=== PATIENT | female | born 1980 | race Caucasian/White ===

== ENCOUNTER 2016-06-06 04:56 | Inpatient (IN) | payer MEDICAID ==
[2016-06-06] VITALS (8 sets, daily range): BP systolic 99–144; BP diastolic 57–69; PULSE 63–73; RESP 15–18; Ht 152.4 cm; Wt 90.0 kg
[~2016-06-06] VITALS: Ht 152.4 cm; Wt 90.0 kg
[~2016-06-06 04:56] MED LIST: NITR-58 PO
[2016-06-06] MEDS ORDERED: MISOPROSTOL 200 MCG TAB PR PRN ×2 (06:00→13:00)
[2016-06-06] MEDS ORDERED: CEFAZOLIN 2 GM/50 ML (PMX) 50 ML IV SCH (06:00)
[2016-06-06] MEDS ORDERED: METHYLERGONOVINE 0.2 MG INJ IM PRN ×2 (06:00→13:00)
[2016-06-06] MEDS ORDERED: OXYTOCIN 30 UNITS/LR 500 ML IV PRN ×2 (06:00→13:00)
[2016-06-06] MEDS ORDERED: OXYTOCIN 30 UNITS/LR 500 ML IV SCH (06:00)
[2016-06-06] MEDS ORDERED: CARBOPROST 250 MCG INJ IM PRN ×2 (06:00→13:00)
--- NOTE | 2016-06-06 06:02 | RADRPT ---
PROCEDURE: Limited OB ultrasound CLINICAL INDICATION: Vaginal bleeding TECHNIQUE: Sonographic evaluation to assess the placenta was performed. Transabdominal imaging of the gravid uterus was performed. COMPARISON: No prior exam is available for comparison. FINDINGS: There is a single live intrauterine with cardiac activity, with a heart rate o f 150 bpm. position is cephalic. The placenta is right lateral. There is no evidence of sagar cental abruption or previa. IMPRESSION: There is no evidence of placental abruption or previa. RPTAT: HH .Sudha Cuevas MD, MD Date Time Electronically viewed and signed by .Sudha Cuevas MD, MD on 06/06/2016 06:02 .G/
--- NOTE | 2016-06-06 06:32 | HP ---
Date/Time of Note Date/Time of Note DATE: 06/06/16 TIME: 06:27 OB - History Hx of Present Free Text/Dictation Pt is a 35yo at 36+6 with hx of prior C/S x2 who presents with c/o vaginal bleeding since 0100 followed by contractions. Pt denies having had problems with bleeding during . She reports course has been uncomplicated. Reports normal FM and denies LOF. PROCEDURE: Limited OB ultrasound CLINICAL INDICATION: Vaginal bleeding TECHNIQUE: Sonographic evaluation to assess the placenta was performed. Transabdominal imaging of the gravid uterus was performed. COMPARISON: No prior exam is available for comparison. FINDINGS: There is a single live intrauterine with cardiac activity, with a heart rate of 150 bpm. position is cephalic. The placenta is right lateral. There is no evidence of placental abruption or previa. IMPRESSION: There is no evidence of placental abruption or previa. Estimated Due Date: Jun 28, 2016 : 5 Para: 2 Spontaneous : 2 Care: Good Care Obstetrical Complications: Other (C/S x2) Medical Complications: None Past Family/Social History * Past Medical, Surgical, Family and Obstetric Histories reviewed from chart. OB Admission Exam Vital Signs Vital Signs Vital Signs Date Time Temp Pulse Resp B/P Pulse Ox O2 Delivery O2 Flow Rate FiO2 06/06/16 06:21 98.3 70 15 126/69 Room Air 06/06/16 05:16 98 Physical Exam HEENT: WNL Heart: Rhythm Normal Lungs: Clear Abdomen: WNL Extremities: Normal Cervical Dilatation: 1cm (on SSE. <10ml blood in vault. No active bleeding although there appeared to be a clot over the cervical os) Effacement: 0% (on SSE, SVE deferred) Station: -3 (on SSE, SVE deferred) Heart Rate: 130's Accelerations: Accelerations Present Decelerations: No Decelerations Varibility: Moderate Contractions on Admission: < 5 Minutes Apart Intensity: Mild OB Assessment/Plan Other Assessment: 1) Vaginal Bleeding 2) Hx of C/S x2 Other plan: -Given pt prior C/S hx and absence of available records, U/S ordered for placental location as differential includes placenta previa vs abruption vs labor. No previa or abruption noted on U/S results. Most likely bleeding is 2/2 PTL. -FWB reassuring, Category 1 FHT -Admission and pre-op labs drawn, awaiting results -Will prepare pt for OR, last meal at 1900 last night KRISHNA FRYE MD Jun 06, 2016 06:32
[2016-06-06 06:46] LABS: BASOPHILS % 0.2 % (0.0-2.0); EOSINOPHILS # 0.1 10^3/ul (0.0-0.5); HEMATOCRIT 38.7 % (37.0-47.0); HEMOGLOBIN 13.1 g/dl (12.0-16.0); LYMPHOCYTES # 1.8 10^3/ul (0.8-2.9); MEAN CORPUSCULAR HEMOGLOBIN 31.3 pg (29.0-33.0); MEAN CORPUSCULAR HGB CONC 33.9 g/dl (32.0-37.0); MEAN CORPUSCULAR VOLUME 92.4 fl (82.0-101.0); MEAN PLATELET VOLUME 8.4 fl (7.4-10.4); MONOCYTE # 0.5 10^3/ul (0.3-0.9); MONOCYTES % 7.2 % (0.0-11.0); NEUTROPHIL # 4.1 10^3/ul (1.6-7.5); NEUTROPHILS % 63.6 % (39.0-77.0); PLATELET COUNT 215 10^3/UL (140-440); RED BLOOD COUNT 4.19 10^6/ul (4.20-5.40); UNCORRECTED WBC 6.4 10^3/ul (4.8-10.8); WHITE BLOOD COUNT 6.4 10^3/ul (4.8-10.8)
[2016-06-06] MEDS: LACTATED RINGER'S 1,000 ML IV SCH ×2 (06:52→07:53)
[2016-06-06 07:00] LABS: CONDITION 1
[2016-06-06] MEDS ORDERED: ONDANSETRON 4 MG INJ IV ONE (07:30)
[2016-06-06] MEDS ORDERED: CITRIC ACID/NA CITRATE 30 ML CUP PO ONE (07:30)
[2016-06-06 07:42] LABS: PROTIME 13.2 Sec (12.2-14.2)
[2016-06-06 07:43] LABS: PARTIAL THROMBOPLASTIN TIME 26.9 Sec (25.0-35.0)
[2016-06-06] MEDS ORDERED: morphine SULFATE/PF (10 MG/10 ML) INJ ONE (07:58)
[2016-06-06] MEDS ORDERED: PHENYLephrine (100 MCG/ML) 5ML SYG ONE (08:08)
[2016-06-06] MEDS ORDERED: OXYTOCIN 10 UNIT INJ ONE (08:08)
[2016-06-06] MEDS ORDERED: HYDROmorphONE (0.2 MG/ML) 10ML SYG IV PRN (08:30)
[2016-06-06] MEDS ORDERED: morphine (1 MG/ML) 10ML SYRINGE IV PRN ×2 (08:30)
[2016-06-06] MEDS ORDERED: NALOXONE (0.4 MG/ML) INJ IV PRN (08:30)
[2016-06-06] MEDS ORDERED: EPHEDrine SULFATE 50 MG/5 ML SYG IV PRN (08:30)
[2016-06-06] MEDS ORDERED: HYDROmorphONE 1 MG/ML SYG IV PRN ×2 (08:30)
[2016-06-06] MEDS ORDERED: DIPHENHYDRAMINE 50 MG INJ IV PRN ×2 (08:30)
[2016-06-06] MEDS ORDERED: KETOROLAC 30 MG INJ IV PRN (08:30)
[2016-06-06] MEDS ORDERED: NALBUPHINE HCL (10 MG/1 ML) INJ IV PRN (08:30)
[2016-06-06] MEDS ORDERED: HYDROCODONE/APAP (5/325) TAB PO PRN (08:30)
[2016-06-06] MEDS ORDERED: MEPERIDINE 25 MG INJ IV PRN (08:30)
[2016-06-06] MEDS ORDERED: ONDANSETRON 4 MG INJ IV PRN ×2 (08:30)
[2016-06-06] MEDS ORDERED: morphine 2 MG INJ IV PRN (08:30)
[2016-06-06] MEDS ORDERED: METOCLOPRAMIDE 10 MG INJ IV PRN (08:30)
[2016-06-06] MEDS ORDERED: morphine 4 MG/ML VIAL IV PRN (08:30)
[2016-06-06] MEDS ORDERED: DEXAMETHASONE 4 MG/ML 1 ML INJ ONE (08:40)
[2016-06-06] MEDS ORDERED: ONDANSETRON 4 MG INJ ONE (08:40)
[2016-06-06] MEDS ORDERED: KETOROLAC 30 MG INJ ONE (08:40)
[2016-06-06] MEDS: HYDROmorphONE (0.2 MG/ML) 10ML SYG IV PRN ×2 (10:46→11:16)
--- NOTE | 2016-06-06 12:19 | DELSUM ---
Delivery Summary A-C Datetime Report Generated by CPN: 06/06/2016 12:19 DELIVERY PERSONNEL Clinical Psychiatrist: Shalonda Preciadovia MATERNAL INFORMATION Delivery Anesthesia: Spinal Medications in Delivery: see anesthesia record Estimated Blood Loss (ml): 600 Placenta Cultured: No Maternal Complications: None Other Maternal Complications: bleeding LABOR SUMMARY EDC: 06/28/2016 00:00 No. Babies in Womb: 1 Attempted: No Labor Anesthesia: None LABOR INFORMATION Reason for Induction: Not Applicable Onset of Labor: 06/06/2016 04:30 Oxytocin: N/A Group B Beta Strep: Done, Result Unknown Antibiotics # of Doses: amcef 2 grams X1 Antibiotics Time of Last Dose: 08 Steroids Given: None Reason Steroids Not Administered: Not Applicable MEMBRANES Membranes Rupture Method: Artificial Rupture of Membranes: 06/06/2016 08:30 Length of Rupture (hr): 0.02 Amniotic Fluid Color: Clear Amniotic Fluid Amount: Moderate Amniotic Fluid Odor: Normal STAGES OF LABOR Stage 3 hr: 0 Stage 3 min: 3 Total Time in Labor hr: 4 Total Time in Labor min: 4 CSECTION DELIVERY Primary Indication: Repeat Elective Other Primary Indication: bleeding Secondary Indication: Repeat Elective CSection Urgency: Elective CSection Incidence: Repeat Labor: Labor Elective: Elective CSection Incision: Lower Uterine Transverse Sterilization Procedure: Omi BABY A INFORMATION Infant Delivery Date/Time: 06/06/2016 08:31 Method of Delivery: Born in Route : No : N/A Forceps: N/A Vacuum Extraction: N/A Shoulder Dystocia : N/A SHOULDER DYSTOCIA BABY A Infant Delivery Date/Time: 06/06/2016 08:31 PRESENTATION/POSITION BABY A Presentation: Cephalic Cephalic Presentation: Vertex Vertex Position: Left Occipital Anterior Breech Presentation: N/A PLACENTA INFORMATION BABY A Placenta Delivery Time : 06/06/2016 08:34 Placenta Method of Delivery: Manual Removal Placenta Status: Delivered SCORES BABY A Heart Rate 1 min: >100 bpm Resp Effort 1 min: Good Cry Reflex Irritability 1 min: Cough/Sneeze/Pulls Away Muscle Tone 1 min: Active Motion Color 1 min: Body [place], Extremit Blue Resuscitation Effort 1 min: Tactile Stimulation SCORE 1 MIN: 9 Heart Rate 5 min: >100 bpm Resp Effort 5 min: Good Cry Reflex Irritability 5 min: Cough/Sneeze/Pulls Away Muscle Tone 5 min: Active Motion Color 5 min: Body [place], Extremit Blue Resuscitation Effort 5 min: Tactile Stimulation SCORE 5 MIN: 9 INFORMATION BABY A Gestational Age at Delivery: 36.6 Gestational Status: Late - 34- 36.6 Weeks Infant Outcome : Liveborn Condition : Stable Sex: Male IDENTIFICATION/MEDS BABY A ID Band Number: [id number] ID Band Location: Right Leg; Left Arm Sensor Applied: Yes Sensor Number: [id number] Sensor Location : Cord Clamp Vitamin K Given : Aquamephyton 1 mg IM; Left Thigh Erythromycin Given: Given Both Eyes WEIGHT/LENGTH BABY A Infant Birthweight (gm): 3635 Weight (lb): 8 Infant Weight (oz): 0 Infant Length (in): 21.00 Infant Length (cm): 53.34 CORD INFORMATION BABY A No. Cord Vessels: 3 Nuchal Cord : Around Neck x2, Tight Cord Blood Taken: Yes Infant Suction: Mouth; Nose ASSESSMENT BABY A Complications: None Physical Findings at Delivery: Within Normal Limits Respirations: Appears Normal Motion Picture Critic/ALS Called : No Care By: stacy Transferred To: Remains with Mother
--- NOTE | 2016-06-06 12:19 | DELSUM ---
Delivery Summary A-C Datetime Report Generated by CPN: 06/06/2016 12:19 DELIVERY PERSONNEL Plant Facilities Technician: Shalonda Preciadovia MATERNAL INFORMATION Delivery Anesthesia: Spinal Medications in Delivery: see anesthesia record Estimated Blood Loss (ml): 600 Placenta Cultured: No Maternal Complications: None Other Maternal Complications: bleeding LABOR SUMMARY EDC: 06/28/2016 00:00 No. Babies in Womb: 1 Attempted: No Labor Anesthesia: None LABOR INFORMATION Reason for Induction: Not Applicable Onset of Labor: 06/06/2016 04:30 Oxytocin: N/A Group B Beta Strep: Done, Result Unknown Antibiotics # of Doses: amcef 2 grams X1 Antibiotics Time of Last Dose: 08 Steroids Given: None Reason Steroids Not Administered: Not Applicable MEMBRANES Membranes Rupture Method: Artificial Rupture of Membranes: 06/06/2016 08:30 Length of Rupture (hr): 0.02 Amniotic Fluid Color: Clear Amniotic Fluid Amount: Moderate Amniotic Fluid Odor: Normal STAGES OF LABOR Stage 3 hr: 0 Stage 3 min: 3 Total Time in Labor hr: 4 Total Time in Labor min: 4 CSECTION DELIVERY Primary Indication: Repeat Elective Other Primary Indication: bleeding Secondary Indication: Repeat Elective CSection Urgency: Elective CSection Incidence: Repeat Labor: Labor Elective: Elective CSection Incision: Lower Uterine Transverse Sterilization Procedure: Omi BABY A INFORMATION Infant Delivery Date/Time: 06/06/2016 08:31 Method of Delivery: Born in Route : No : N/A Forceps: N/A Vacuum Extraction: N/A Shoulder Dystocia : N/A SHOULDER DYSTOCIA BABY A Infant Delivery Date/Time: 06/06/2016 08:31 PRESENTATION/POSITION BABY A Presentation: Cephalic Cephalic Presentation: Vertex Vertex Position: Left Occipital Anterior Breech Presentation: N/A PLACENTA INFORMATION BABY A Placenta Delivery Time : 06/06/2016 08:34 Placenta Method of Delivery: Manual Removal Placenta Status: Delivered SCORES BABY A Heart Rate 1 min: >100 bpm Resp Effort 1 min: Good Cry Reflex Irritability 1 min: Cough/Sneeze/Pulls Away Muscle Tone 1 min: Active Motion Color 1 min: Body Clara, Extremit Blue Resuscitation Effort 1 min: Tactile Stimulation SCORE 1 MIN: 9 Heart Rate 5 min: >100 bpm Resp Effort 5 min: Good Cry Reflex Irritability 5 min: Cough/Sneeze/Pulls Away Muscle Tone 5 min: Active Motion Color 5 min: Body Clara, Extremit Blue Resuscitation Effort 5 min: Tactile Stimulation SCORE 5 MIN: 9 INFORMATION BABY A Gestational Age at Delivery: 36.6 Gestational Status: Late - 34- 36.6 Weeks Infant Outcome : Liveborn Condition : Stable Sex: Male IDENTIFICATION/MEDS BABY A ID Band Number: [id number] ID Band Location: Right Leg; Left Arm Sensor Applied: Yes Sensor Number: [id number] Sensor Location : Cord Clamp Vitamin K Given : Aquamephyton 1 mg IM; Left Thigh Erythromycin Given: Given Both Eyes WEIGHT/LENGTH BABY A Infant Birthweight (gm): 3635 Weight (lb): 8 Infant Weight (oz): 0 Infant Length (in): 21.00 Infant Length (cm): 53.34 CORD INFORMATION BABY A No. Cord Vessels: 3 Nuchal Cord : Around Neck x2, Tight Cord Blood Taken: Yes Infant Suction: Mouth; Nose ASSESSMENT BABY A Complications: None Physical Findings at Delivery: Within Normal Limits Respirations: Appears Normal Oil Well Perforator Operator/ALS Called : No Care By: stacy Transferred To: Remains with Mother
--- NOTE | 2016-06-06 12:19 | OPRPT ---
Intraop Record Datetime Report Generated by CPN: 06/06/2016 12:19 Datetime: 06/06/2016 11:30 Sequential Compression Device: Yes Datetime: 06/06/2016 11:15 Sequential Compression Device: Yes Datetime: 06/06/2016 11:00 Sequential Compression Device: Yes Datetime: 06/06/2016 10:45 Sequential Compression Device: Yes Datetime: 06/06/2016 10:30 Sequential Compression Device: Yes Datetime: 06/06/2016 10:15 Sequential Compression Device: Yes Datetime: 06/06/2016 10:00 Sequential Compression Device: Yes Datetime: 06/06/2016 09:45 Sequential Compression Device: Yes Datetime: 06/06/2016 09:30 Sequential Compression Device: Yes Datetime: 06/06/2016 09:15 Depart OR: 06/06/2016 09:11 Anesthesia End: 06/06/2016 09:25 Sequential Compression Device: Yes Datetime: 06/06/2016 07:43 OR Number: 3 TIMES/PROCEDURE Arrive OR: 06/06/2016 07:56 Depart OR: 06/06/2016 09:11 Anesthesia Start: 06/06/2016 07:30 Anesthesia End: 06/06/2016 08:25 Surgery Start: 06/06/2016 08:25 Surgery End: 06/06/2016 09:11 Preoperative Dx: repeat section with BTL Surgical Procedure: Section with BTL C/S Decision Time: 06/06/2016 06:00 C/S Decision to Incision (min): 145 Uterine Incision: 06/06/2016 08:30 PERSONNEL Surgeon: Sita Hill PERSONNEL Surgeon: Sita Hill Scrub: Cecelia Mccarthy Anesthesia Care Provider: Shaan Reddy Infant Care: See Delivery Summary for Infant Care Providers Others in OR: FOB Anesthesia Type: Spinal ASA Level: II; Emergency RISK FOR INJURY Mode of Arrival: cynthia Procedure Time Out: Correct Patient Identity; Correct Side and Site are Marked (if applicable); Acc urate Procedure Consent Form; Agreement on Procedure to be Done; Correct Patient Position; Relevant Images and Results are Properly Labeled and Displayed; Addressed Need to Administer Antibiotics or F luids for Irrigation; Safety Precautions Based on Patient History or Medication Use; Allergies Revie wed Preoperative Information: Preoperative Checklist Reviewed; Allergies Reviewed; NPO Status Verified RISK FOR ANXIETY/KNOW DEFICIT Emotional Status: Calm/Relaxed Interventions: Provided Education Based on Age and Identified Needs; Communicated Patient Concerns to Appropriate Members of the Health Care Team; Explained Sequence of Events and Perioperative Routi ne; Evaluated Response to Instructions RISK FOR PAIN Pain Teaching: Instructed on Pain Scale Pain Scale: 8.0 Pain Location: Abdomen, PREOPERATIVE OUTCOMES Preoperative Outcomes: Verbalizes/Indicates Decreased Anxiety, Ability to Latty, Understanding of Pr ocedure and Sequence of Events. Questions Answered; Demonstrates Adequate Pain Management; Verbaliz es Comfort Related to Transfer/Transport RISK FOR INFECTION Skin Pre-Operative Site: Intact Clip: Clip Clip Location: MONS PUBIS Prep: Yes Prep By: ANAID Prep Solution: Chlorohexadine Catheter: Macias Catheter Size: 16 Catheter Inserted By: ANAID CRANEcementer hand Wound Class: [id number] Dressing Type: Secured Gauze Other Dressing Types: paper tape Risk for Impaired Skin Integrity Position in OR: Supine Bony Prominences Protection: Arms Tucked/Padded Positioning Devices: N/A Other Position: skin intact no erythema noted Risk for Hypothermia Warming Interventions: Warm [place](s) Warming Unit Temp Settin.0 Warming Device Number: [id number] Risk for Injury Safety Straps Applied: Legs Sequential Compression Device: Yes Sequential Compression Other: [id number] Electrosurgical Unit: Yes Electrosurgical Unit Number: [id number] Bipolar Number: [id number] 11/2017 Ground Pad Location: Right Anterior Thigh Coag Number: 55 Cut Number: 55 Estimated Blood Loss- OR (ml): 600 1st Count Sponge Count: Correct Needle Count: Correct Blade Count: Correct Instrument Count: Correct 2nd Count Sponge Count: Correct Needle Count: Correct Blade Count: Correct Instrument Count: Correct 3rd Count Sponge Count: Correct Needle Count: Correct Blade Count: Correct Instrument Count: Correct Final Count Sponge Count 4: Correct Needle Count 4: Correct Blade Count 4: Correct Instrument Count 4: Correct Surgeon Acknowledged Count: Yes Final Count Resolution: N/A Intraoperative Data Equipment: Non-Invasive Blood Pressure; Pulse Oximeter; EKG; Temp Monitor Blood Products Given: N/A Meds Not Administered by Anest: ORESTES SMITH Implants/Prosthesis Implants/Prosthesis: N/A Grafts: N/A Irrigation Irrigants: NACL; LR Irrigation Amount: 1000 EACH Specimens Specimens: N/A Specimen Type: Fallopian Tubes Disposition: PATHOLOGY Specimen Type: Fallopian Tubes Disposition: PATHOLOGY Cultures Cultures: Yes X-Ray X-Ray Taken: No Postoperative Skin: Warm; Dry Pain Scale: 0 Condition: Awake; Alert Temperature: 98.0 Operative Outcomes: Patient's Surgery Performed Using Aseptic Technique and in a Manner to Prevent Cross-Contamination; Skin Remains Smooth, Intact, Non-reddened, Non-irritated, Free of Bruising; Cor e Body Temperature Remains in Expected Range Other Operative Outcomes: skin intact no erythema noted Transfer To: PACU Report Given to: This RN Datetime: 06/06/2016 05:33 Food Allergies/Reactions: none Latex Allergies/Reactions: No Latex Allergies Datetime: 05/30/2016 10:28 Drug Allergies/Reactions: No Known Allergy (12/13/2014)
[2016-06-06] MEDS ORDERED: CEFAZOLIN 1 GM/50 ML (PMX) 50 ML IVPB SCH (13:00)
[2016-06-06] MEDS ORDERED: OXYCODONE/ACETAMINOPHEN (5/325) TAB PO PRN (13:00)
[2016-06-06] MEDS ORDERED: ACETAMINOPHEN/CODEINE #3 TAB PO PRN ×2 (13:00)
[2016-06-06] MEDS: OXYTOCIN 30 UNITS/LR 500 ML IV SCH ×3 (13:15→20:44)
[2016-06-06] MEDS: SENNA/DOCUSATE NA (8.6MG/50MG) TAB PO SCH (20:45)
--- NOTE | 2016-06-06 23:02 | OPR ---
DATE OF OPERATION: 06/06/2016 PREOPERATIVE DIAGNOSES: 1. Intrauterine at 36 weeks and 6 days. 2. History of 2 previous sections. 3. In active labor. 4. Request for voluntary sterilization, bilateral tubal ligation at the time of section. POSTOPERATIVE DIAGNOSES: 1. Intrauterine at 36 weeks and 6 days. 2. History of 2 previous sections. 3. In active labor. 4. Request for voluntary sterilization, bilateral tubal ligation at the time of section. OPERATION PERFORMED: Repeat transverse low cervical section, bilateral tubal ligation. SURGEON: Shweta Hill MD TELEVISION MAINTENANCE MAN: Darian Clinton MD ANESTHESIA: Spinal. ANESTHESIOLOGIST: Shaan Reddy MD FINDINGS: Live baby boy, 9 and 9. Baby weighed 3635 grams, 8 pounds. DETAILS OF THE PROCEDURE: Under satisfactory spinal anesthesia, the patient was prepped and draped and placed in supine position, tilted to the left. Pfannenstiel incision was made, carried through to the subcutaneous tissue. Bleeders brought under control with electrocautery. Fascia incised to the length of the incision. Rectus muscle divided in midline. Peritoneum exposed, entered through a transverse incision. Exploration of abdomen gravid uterus at term, normal appearing tubes and ova conner, and extremely thinned out lower segment of the uterus. Bladder flap was developed. Transvers e incision was made in the lower segment of the uterus. Amniotic sac ruptured. Clear amniotic flui d noted. Live baby boy was delivered from unengaged vertex with a nuchal cord x2, tight, around the baby's neck. Nasal oropharyngeal suction was performed. Baby handed to the team for imme diate attention. The patient received 20 units of Pitocin. Placenta delivered manually intact. Ut erine cavity cleaned with wet sponge and drainage established. Uterus closed in 2 layers using Will cryl #1 in continuous fashion. Bilateral tubal ligation performed by identifying the fimbria and am pullary section of the right fallopian tube. Suture material used #0 plain catgut was reinforced wi th the same suture material. That portion of the tube was excised and submitted for the pathology. The same procedure performed for the opposite side. Peritoneal cavity was irrigated with warm sali ne. Sponge, needle, and instrument reported to be correct. Abdominal peritoneum closed with 2-0 ch romic catgut continuously. Rectus muscle approximated with 2 interrupted 2-0 chromic catgut. Fasci a closed with #1 PDS in a continuous fashion. Subcutaneous tissue approximated with 2-0 chromic cat gut. Skin closed with chito. Estimated blood loss 600 mL. Urine bag contained 200 mL of clear u rine. The patient tolerated procedure well, transferred to recovery room in a good condition. Dictated By: SHWETA MARTINES/INEZ Conf#: [id number] DID#: [id number]
[2016-06-07] VITALS: BP 98/53; PULSE 66; RESP 18
[2016-06-07] MEDS: OXYTOCIN 30 UNITS/LR 500 ML IV SCH ×2 (00:59→04:59)
[2016-06-07] MEDS: LACTATED RINGER'S 1,000 ML IV SCH ×3 (01:22→05:48)
[2016-06-07 04:20] VITALS: BP 106/53; PULSE 64; RESP 18
--- NOTE | 2016-06-07 06:56 | CONS ---
Date/Time of Note Date/Time of Note DATE: 06/07/16 TIME: 06:53 Consultation Date/Type/Reason Admit Date/Time Jun 06, 2016 at 06:00 Initial Consult Date 06/06/16 Type of Consultation: Anesthesia Reason for Consultation Repeat in labor and Placenta Previa 24 HR Interval Summary Free Text/Dictation 35 yr old female went under repeat under spinal anesthesia. Intrathecal Duramorph was given for post-op pain control. Patient is doing well pain is well controlled. No nausea or vomiting. No sensory or motor deficit. Vital signs are stable patient is afebrile. No apnea reported. Patient will be followed by her primary team. Exam/Review of Systems Vital Signs Vitals Vital Signs Date Time Temp Pulse Resp B/P Pulse Ox O2 Delivery O2 Flow Rate FiO2 06/07/16 04:20 98.3 64 18 106/53 Room Air 06/07/16 03:15 96 21 Intake and Output 06/06/16 06/06/16 06/07/16 15:00 23:00 07:00 Intake Total 2720 ml 1000 ml 1045 ml Output Total 800 ml 800 ml 800 ml Balance 1920 ml 200 ml 245 ml Results Result Diagram: 06/06/16 0605 Results 24 hrs Laboratory Tests Test 06/06/16 07:19 Activated Partial Thromboplast Time 26.9 INR International Normalized Ratio 1.00 Prothrombin Time 13.2 Prothrombin Time Ratio 1.0 Medications Medications Current Medications Lactated Ringer's 1,000 ml @ 125 mls/hr Q8H IV Last administered on 06/06/16 07:53; Admin Dose 125 MLS/HR; Start 06/06/16 at 05:48 Oxytocin/Lactated Ringer's 500 ml @ 125 mls/hr ONCE IV Last administered on 09:43; Admin Dose 125 MLS/HR; Start 06/06/16 at 06:00 Hydromorphone HCl (Dilaudid) 0.2 mg Q2H PRN IV PAIN LEVEL 1-5; Start 06/06/16 at 08:30 Hydromorphone HCl (Dilaudid) 0.4 mg Q2H PRN IV PAIN LEVEL 6-10; Start 06/06/16 at 08:30 Morphine Sulfate (morphine) 2 mg Q2H PRN IV PAIN LEVEL 1-5; Start 06/06/16 at 08:30 Morphine Sulfate (morphine) 4 mg Q2H PRN IV PAIN LEVEL 6-10; Start 06/06/16 at 08:30 Ketorolac Tromethamine (Toradol) 30 mg Q6H PRN IV PAIN LEVEL 6-10; Start at 08:30; Stop 06/09/16 at 08:29 Acetaminophen/ Hydrocodone Bitart (Blackstone (5/325)) 1 tab Q4H PRN PO PAIN LEVEL 4 -6; Start 06/06/16 at 08:30 Nalbuphine HCl (Nubain) 10 mg Q4H PRN IV PRURITUS; Start 06/06/16 at 08:30 Ondansetron HCl (Zofran Inj) 4 mg Q6H PRN IV NAUSEA AND/OR VOMITING; Start at 08:30 Naloxone HCl (Narcan) 0.2 mg Q2M PRN IV FOR RESP RATE 8 OR LESS; Start at 08:30 Acetaminophen/ Codeine Phosphate (Tylenol No.3) 1 tab Q4H PRN PO PAIN LEVEL 4-6 ; Start 06/06/16 at 13:00 Acetaminophen/ Codeine Phosphate (Tylenol No.3) 2 tab Q4H PRN PO PAIN LEVEL 7- 10; Start 06/06/16 at 13:00 Oxycodone/ Acetaminophen (Percocet (5/ 325)) 1 tab Q4H PRN PO PAIN LEVEL 4-6; Start 06/06/16 at 13:00 Oxycodone/ Acetaminophen (Percocet (5/ 325)) 2 tab Q4H PRN PO PAIN LEVEL 7-10; Start 06/06/16 at 13:00 Ibuprofen (Motrin) 600 mg Q6 PO ; Start 06/07/16 at 18:00 Simethicone (Mylicon) 160 mg Q8H PRN PO DISTENSION/GAS/BLOATING; Start at 13:00 Senna/Docusate Sodium (Senokot-S) 1 tab BID PO Last administered on 06/06/16t 20:45; Admin Dose 1 TAB; Start 06/06/16 at 21:00 Diphtheria/ Tetanus/Acell Pertussis 0.5 ml 0.5 ml ONCE ONCE IM* ; Start at 09:00; Stop 06/09/16 at 09:01 Oxytocin/Lactated Ringer's 500 ml @ 0 mls/hr ONCE PRN IV For Hemorrhage Management; Start 06/06/16 at 13:00 Methylergonovine Maleate (Methergine) 0.2 mg ONCE PRN IM VAGINAL BLEEDING; Start 06/06/16 at 13:00 Carboprost Tromethamine (Hemabate) 250 mcg ONCE PRN IM VAGINAL BLEEDING; Start 06/06/16 at 13:00 Misoprostol 1000 mcg 1,000 mcg ONCE PRN IA VAGINAL BLEEDING; Start 06/06/16 at 13:00 Oxytocin/Lactated Ringer's 500 ml @ 125 mls/hr Q4H IV Last administered on 20:44; Admin Dose 125 MLS/HR; Start 06/06/16 at 12:59 Lactated Ringer's (Lr) 1,000 ml @ 125 mls/hr Q8H IV Last administered on 01:22; Admin Dose 125 MLS/HR; Start 06/06/16 at 21:30; Stop 06/07/16 at 08: 30 JACKSON TAYLOR MD Jun 07, 2016 06:56
[2016-06-07] MEDS: LANOLIN 7 GM TUBE TOP PRN (07:02)
[2016-06-07 08:11] VITALS: BP 98/48; PULSE 72; RESP 18
[2016-06-07 08:24] LABS: BASOPHILS % 0.4 % (0.0-2.0); EOSINOPHILS % 0.3 % (0.0-7.0); HEMATOCRIT 29.9 % (37.0-47.0); HEMOGLOBIN 10.2 g/dl (12.0-16.0); LYMPHOCYTES # 1.9 10^3/ul (0.8-2.9); LYMPHOCYTES % 20.6 % (15.0-51.0); MEAN CORPUSCULAR HEMOGLOBIN 31.5 pg (29.0-33.0); MEAN CORPUSCULAR HGB CONC 34.2 g/dl (32.0-37.0); MEAN CORPUSCULAR VOLUME 92.2 fl (82.0-101.0); MEAN PLATELET VOLUME 8.3 fl (7.4-10.4); MONOCYTE # 0.8 10^3/ul (0.3-0.9); MONOCYTES % 8.6 % (0.0-11.0); NEUTROPHIL # 6.6 10^3/ul (1.6-7.5); NEUTROPHILS % 70.1 % (39.0-77.0); PLATELET COUNT 186 10^3/UL (140-440); RED BLOOD COUNT 3.24 10^6/ul (4.20-5.40); RED CELL DISTRIBUTION WIDTH 13.9 % (11.5-14.5); UNCORRECTED WBC 9.4 10^3/ul (4.8-10.8); WHITE BLOOD COUNT 9.4 10^3/ul (4.8-10.8)
[2016-06-07 08:28] LABS: CONDITION 1
[2016-06-07] MEDS: SENNA/DOCUSATE NA (8.6MG/50MG) TAB PO SCH ×2 (08:38→20:58)
[2016-06-07] MEDS: OXYCODONE/ACETAMINOPHEN (5/325) TAB PO PRN (09:28)
--- NOTE | 2016-06-07 12:31 | PN ---
Date/Time of Note Date/Time of Note DATE: 06/07/16 TIME: 12:30 OB Subjective Subjective Subjective Post day 1 Afebrile vital sign is stable abdomen soft with bowel sounds present extremity normal ambulation recommended Laboratory Tests Test 06/07/16 07:32 Basophils # 0.010^3/ul Basophils % 0.4% Eosinophils # 0.010^3/ul Eosinophils % 0.3% Hematocrit 29.9% Hemoglobin 10.2g/dl Lymphocytes # 1.910^3/ul Lymphocytes % 20.6% Mean Corpuscular Hemoglobin 31.5pg Mean Corpuscular Hemoglobin Concent 34.2g/dl Mean Corpuscular Volume 92.2fl Mean Platelet Volume 8.3fl Monocytes # 0.810^3/ul Monocytes % 8.6% Neutrophils # 6.610^3/ul Neutrophils % 70.1% Nucleated Red Blood Cells # 0.010^3/ul Nucleated Red Blood Cells % 0.0/100WBC Platelet Count 05892^3/UL Red Blood Count 3.2410^6/ul Red Cell Distribution Width 13.9% White Blood Count 9.410^3/ul Current Medications Medications (Trade) Dose Ordered Sig/Ronda Route PRN Reason Start Time Stop Time Status Last Admin Dose Admin Lactated Ringer's 1,000 ml @ 125 mls/hr Q8H IV 06/06/16 05:48 06/06/16 07:53 Cefazolin Sodium/ Dextrose 50 ml @ 100 mls/hr ONCE IV 06/06/16 06:00 06/06/16 13:04 DC Oxytocin/Lactated Ringer's 500 ml @ 125 mls/hr ONCE IV 06/06/16 06:00 06/06/16 09:43 Oxytocin/Lactated Ringer's 500 ml @ 0 mls/hr ONCE PRN IV For Hemorrhage Management 06/06/16 06:00 06/06/16 13:04 DC Methylergonovine Maleate (Methergine) 0.2 mg ONCE PRN IM VAGINAL BLEEDING 06/06/16 06:00 06/06/16 13:04 DC Carboprost Tromethamine (Hemabate) 250 mcg ONCE PRN IM VAGINAL BLEEDING 06/06/16 06:00 06/06/16 13:04 DC Misoprostol (Cytotec) 1,000 mcg ONCE PRN ND VAGINAL BLEEDING 06/06/16 06:00 06/06/16 13:04 DC Ondansetron HCl (Zofran Inj) 4 mg pre-procedure ONCE IV 06/06/16 07:30 06/06/16 07:31 DC 06/06/16 07:54 Citric Acid/ Sodium Citrate (Bicitra) 30 ml pre-procedure ONCE PO 06/06/16 07:30 06/06/16 07:31 DC 06/06/16 07:53 Morphine Sulfate (Duramorph) 10 mg STK-MED ONCE .ROUTE 06/06/16 07:58 06/06/16 07:59 DC Oxytocin (Oxytocin) 10 units STK-MED ONCE .ROUTE 06/06/16 08:08 06/06/16 08:09 DC Phenylephrine HCl (Jayden-Synephrine Inj Syg) 500 mcg STK-MED ONCE .ROUTE 06/06/16 08:08 06/06/16 08:09 DC Morphine Sulfate (morphine (REC)) 2 mg PACU ORDER PRN IV MILD PAIN LEVEL 1-3 06/06/16 08:30 06/06/16 17:00 DC Morphine Sulfate (morphine (REC)) 4 mg PACU ORDER PRN IV MODERATE PAIN LEVEL 4-6 06/06/16 08:30 06/06/16 17:00 DC Hydromorphone HCl (Dilaudid (Rec)) 0.2 mg PACU ORDER PRN IV MILD PAIN LEVEL 1-3 06/06/16 08:30 06/06/16 17:00 DC 06/06/16 11:16 Hydromorphone HCl (Dilaudid (Rec)) 0.4 mg PACU ORDER PRN IV MODERATE PAIN LEVEL 4-6 06/06/16 08:30 06/06/16 17:00 DC Ondansetron HCl (Zofran Inj) 4 mg PACU ORDER PRN IV NAUSEA AND/OR VOMITING 06/06/16 08:30 06/06/16 17:00 DC 06/06/16 10:42 Metoclopramide HCl (Reglan) 10 mg PACU ORDER PRN IV NAUSEA AND/OR VOMITING 06/06/16 08:30 06/06/16 17:00 DC Ephedrine Sulfate 5 mg PACU ORDER PRN IV MAP LESS THAN 60 06/06/16 08:30 06/06/16 13:04 DC Meperidine HCl (Demerol) 25 mg PACU ORDER PRN IV POST-OP RIGORS 06/06/16 08:30 06/06/16 17:00 DC Diphenhydramine HCl (Benadryl) 25 mg PACU ORDER PRN IV PRURITUS 06/06/16 08:30 06/06/16 17:00 DC Hydromorphone HCl (Dilaudid) 0.2 mg Q2H PRN IV PAIN LEVEL 1-5 06/06/16 08:30 Hydromorphone HCl (Dilaudid) 0.4 mg Q2H PRN IV PAIN LEVEL 6-10 06/06/16 08:30 Morphine Sulfate (morphine) 2 mg Q2H PRN IV PAIN LEVEL 1-5 06/06/16 08:30 Morphine Sulfate (morphine) 4 mg Q2H PRN IV PAIN LEVEL 6-10 06/06/16 08:30 Ketorolac Tromethamine (Toradol) 30 mg Q6H PRN IV PAIN LEVEL 6-10 06/06/16 08:30 06/09/16 08:29 Acetaminophen/ Hydrocodone Bitart (Fontana (5/325)) 1 tab Q4H PRN PO PAIN LEVEL 4-6 06/06/16 08:30 Diphenhydramine HCl (Benadryl) 25 mg Q4H PRN IV PRURITUS 06/06/16 08:30 06/06/16 13:04 DC Nalbuphine HCl (Nubain) 10 mg Q4H PRN IV PRURITUS 06/06/16 08:30 Ondansetron HCl (Zofran Inj) 4 mg Q6H PRN IV NAUSEA AND/OR VOMITING 06/06/16 08:30 Naloxone HCl (Narcan) 0.2 mg Q2M PRN IV FOR RESP RATE 8 OR LESS 06/06/16 08:30 Miscellaneous Information (* Miscellaneous Pharmacy Order) DURAMORPH: 0.2 MG SPI... GIVEN NEURAXIAL XX 06/06/16 08:30 Ondansetron HCl (Zofran Inj) 4 mg STK-MED ONCE .ROUTE 06/06/16 08:40 06/06/16 08:41 DC Ketorolac Tromethamine (Toradol) 30 mg STK-MED ONCE .ROUTE 06/06/16 08:40 06/06/16 08:41 DC Dexamethasone (Decadron) 4 mg STK-MED ONCE .ROUTE 06/06/16 08:40 06/06/16 08:41 DC Acetaminophen/ Codeine Phosphate (Tylenol No.3) 1 tab Q4H PRN PO PAIN LEVEL 4-6 06/06/16 13:00 Acetaminophen/ Codeine Phosphate (Tylenol No.3) 2 tab Q4H PRN PO PAIN LEVEL 7-10 06/06/16 13:00 Oxycodone/ Acetaminophen (Percocet (5/ 325)) 1 tab Q4H PRN PO PAIN LEVEL 4-6 06/06/16 13:00 Oxycodone/ Acetaminophen (Percocet (5/ 325)) 2 tab Q4H PRN PO PAIN LEVEL 7-10 06/06/16 13:00 06/07/16 09:28 Ibuprofen (Motrin) 600 mg Q6 PO 06/07/16 18:00 Simethicone (Mylicon) 160 mg Q8H PRN PO DISTENSION/GAS/BLOATING 06/06/16 13:00 Senna/Docusate Sodium (Senokot-S) 1 tab BID PO 06/06/16 21:00 06/07/16 08:38 Lanolin (Mpv-Q-Txznpn) 1 applic BEDSIDE MEDICATION PRN TOP BEDSIDE FOR NYA TO NIPPLES 06/06/16 13:00 06/07/16 07:02 Diphtheria/ Tetanus/Acell Pertussis 0.5 ml 0.5 ml ONCE ONCE IM* 06/09/16 09:00 06/09/16 09:01 Oxytocin/Lactated Ringer's 500 ml @ 0 mls/hr ONCE PRN IV For Hemorrhage Management 06/06/16 13:00 Methylergonovine Maleate (Methergine) 0.2 mg ONCE PRN IM VAGINAL BLEEDING 06/06/16 13:00 Carboprost Tromethamine (Hemabate) 250 mcg ONCE PRN IM VAGINAL BLEEDING 06/06/16 13:00 Misoprostol 1000 mcg 1,000 mcg ONCE PRN ND VAGINAL BLEEDING 06/06/16 13:00 Cefazolin Sodium 50 ml @ 100 mls/hr ONCE IVPB 06/06/16 13:00 06/06/16 13:29 DC 06/06/16 13:19 Oxytocin/Lactated Ringer's 500 ml @ 125 mls/hr Q4H IV 06/06/16 12:59 06/06/16 20:44 Lactated Ringer's (Lr) 1,000 ml @ 125 mls/hr Q8H IV 06/06/16 21:30 06/07/16 08:30 DC 06/07/16 01:22 SHWETA SANTANA MD Jun 07, 2016 12:31
[2016-06-07 12:41] LABS: RUBELLA ANTIBODY - IGG 3.53
[2016-06-07 16:00] VITALS: BP 110/72; PULSE 68; RESP 18
[2016-06-07] MEDS: IBUPROFEN 600 MG TAB PO SCH (18:04)
[2016-06-07 19:30] VITALS: BP 107/55; RESP 18
[2016-06-08] MEDS: IBUPROFEN 600 MG TAB PO SCH ×5 (00:08→23:44)
[2016-06-08 04:00] VITALS: BP 90/49; PULSE 65; RESP 18
[2016-06-08 08:43] VITALS: BP 120/48; PULSE 70; RESP 18
[2016-06-08] MEDS: SENNA/DOCUSATE NA (8.6MG/50MG) TAB PO SCH ×2 (09:32→21:34)
--- NOTE | 2016-06-08 12:35 | PN ---
Date/Time of Note Date/Time of Note DATE: 06/08/16 TIME: 12:34 OB Subjective Subjective Subjective Post day 2 Afebrile abdomen soft incision dry bowel sound present passing gas no bowel movement enema commended SHWETA SANTANA MD Jun 08, 2016 12:35
[2016-06-08] MEDS ORDERED: NA PHOSPHATE/BIPHOS 133 ML ENEMA PR ONE (13:00)
[2016-06-08 16:06] VITALS: BP 110/74; PULSE 70; RESP 18
[2016-06-08 20:00] VITALS: BP 123/62; PULSE 80; RESP 17
[2016-06-08] MEDS: OXYCODONE/ACETAMINOPHEN (5/325) TAB PO PRN (21:35)
[2016-06-09 04:10] VITALS: BP 96/58; PULSE 64; RESP 18
[2016-06-09] MEDS: IBUPROFEN 600 MG TAB PO SCH ×4 (05:24→23:39)
[2016-06-09 08:20] VITALS: BP 113/56; PULSE 64; RESP 18
[2016-06-09] MEDS ORDERED: DIPHTH/TET/ACEL PERTUSS (ADULT) 0.5 ML VIAL IM* ONE (09:00)
[2016-06-09] MEDS ORDERED: INFLUENZA VIRUS VACCINE 0.5 ML (DISPENSING) IM* ONE (09:00)
[2016-06-09] MEDS: SENNA/DOCUSATE NA (8.6MG/50MG) TAB PO SCH ×2 (09:41→21:04)
--- NOTE | 2016-06-09 09:47 | PN ---
Date/Time of Note Date/Time of Note DATE: 06/09/16 TIME: 09:46 OB Subjective Subjective Subjective Post day 3 Vital sign a stable afebrile abdomen soft uterus firm incision dry good bowel sounds patient had normal bowel movement SHWETA SANTANA MD Jun 09, 2016 09:47
[2016-06-09 16:00] VITALS: BP 109/53; PULSE 63; RESP 19
[2016-06-09 20:50] VITALS: BP 115/56; PULSE 70; RESP 19
[2016-06-09] MEDS: LANOLIN 7 GM TUBE TOP PRN (22:05)
[2016-06-10 04:11] VITALS: BP 108/56; PULSE 66; RESP 18
[2016-06-10] MEDS: IBUPROFEN 600 MG TAB PO SCH ×2 (05:38→12:17)
[2016-06-10 08:22] VITALS: BP 129/63; PULSE 66; RESP 17
[2016-06-10] MEDS: SENNA/DOCUSATE NA (8.6MG/50MG) TAB PO SCH (09:21)
[2016-06-10 16:00] VITALS: BP 124/60; PULSE 68; RESP 16
--- NOTE | 2016-06-10 16:45 | PD.PPDC ---
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
--- NOTE | 2016-06-10 16:50 | DS ---
Date/Time of Note Date/Time of Note DATE: 06/10/16 TIME: 16:47 Obstetrical Discharge Record Final Diagnosis Final Diagnosis: Term delivered Section Section: Repeat Condition on Discharge Physical Assessment Last Vitals: Post day 4 Vital sign stable afebrile abdomen soft incision dry uterus firm lochia normal extremity normal had normal bowel movement discharged home with follow-up instruction to be seen at the clinic in 4 days to DC chito at the time of discharge patient received a prescription Motrin 600 mg and Tylenol 3 advised to continue taking vitamins and iron supplement Voiding: Yes Bowel Movement: Yes Breast: Soft, non-tender, Filling Fundus: Firm Abdomen and Incision: Dry healing well Calf Tenderness: No Patient Condition: Good SHWETA SANTANA MD Jun 10, 2016 16:50
== END 2016-06-10 17:00 | disposition home or self-care (01) | DRG 766 ==
LOC: OBT 04:56 → L-D 04:56 → OBT 06:00 → L-D 07:57 → PP1 12:57
PROVIDERS: ADMIT Obstetrics & Gynecology; ATTEND Obstetrics & Gynecology
PROC: 0UB70ZZ Excision of Bilateral Fallopian Tubes, Open Approach (ICD-10-PCS; 2016-06-06)
PROC: 10D00Z1 Extraction of Products of Conception, Low, Open Approach (ICD-10-PCS; principal; 2016-06-06 08:00)
DX: O34.211 Maternal care for low transverse scar from previous cesarean delivery (principal); O69.1XX0 Labor and delivery complicated by cord around neck, with compression, not applicable or unspecified; Z3A.36 36 weeks gestation of pregnancy; Z37.0 Single live birth; Z30.2 Encounter for sterilization
CPT/HCPCS: 76815; 85025; 85610; 85730; 86592; 86762; 86850; 86900; 86901; 86920; 87340; 88302; 90686; 90715; 94760; 99464; G0463; J0690; J1100; J1170; J1885; J2274; J2370; J2405; J2590; J7120